=== PATIENT | female | born 1970 | race Caucasian/White ===

== ENCOUNTER → 2016-12-02 | Outpatient (CLI) | payer OTHER | LOC: FIMAGING 08:54 | DX: Z12.31 Encounter for screening mammogram for malignant neoplasm of breast (principal) | CPT/HCPCS: G0202 ==

== ENCOUNTER 2018-10-23 18:58 | Emergency (ER) | payer OTHER ==
--- NOTE | 2018-10-23 19:09 | EDPHY ---
HPI/HX/ROS/PE/MDM Narrative: CHIEF COMPLAINT: Abdominal pain, nausea HPI: This patient is a generally healthy 48 year old female. She arrives today with her complaining of severe abdominal pain. This woke her from sleep yesterday around 2:30am. This is a sharp, achy pain just above her umbilicus. It is associated with nausea. Her discomfort has waxed and waned throughout the day. She denies any changes in discomfort with food consumption. She has never had similar symptoms in the past. No changes with her stool. She endorses low- grade fever. She has taken ibuprofen and Tylenol. No recent international travel or unusual foods. No dysuria. No rash. No chest pain, shortness of breath , headache, or other associated symptoms. REVIEW OF SYSTEMS: A comprehensive 10 system review of systems is otherwise negative aside from elements mentioned in the history of present illness and medical decision making. PMH: Denies SOCIAL HISTORY: , at bedside. Employed. Nonsmoker. PHYSICAL EXAM: General:Patient is alert, in no acute distress. ENT:Eyes are normal to inspection. ENT inspection normal. Neck: Normal inspection. Full range of motion. Respiratory:No respiratory distress. Breath sounds normal bilaterally. Cardiovascular: Regular rate and rhythm. Strong peripheral pulses. Normal cap refill. Abdomen:The abdomen is nontender to palpation. There are no peritoneal signs. There are normal bowel sounds. Back: Normal to inspection. No tenderness to palpation. Skin: Normal color. No rash. Warm and dry. Extremities: Normal appearance. Full range of motion. Neuro: Oriented x3. Normal motor function. Normal sensory function. ED Course: 48 y/o female presents with abdominal pain and nausea ongoing since yesterday morning at 2:30am. Her abdomen is completely nontender on exam. Plan to administer 1L IV NS as well as 15mg IV Toradol for pain relief. I offered nausea medication but the patient declines at this time. Plan for labs including CBC, chemistries, liver, lipase. Plan for abdominal x-ray for further evaluation. X-ray of the abdomen shows moderate fecal material scattered throughout the colon, otherwise negative for acute processes. 20:18 Reviewed laboratory studies. Portions of the chemistries are still pending at this time, and the laboratory has been contacted regarding this. 20:30 Laboratory studies are completely unremarkable, WBC, LFTs, lipase within normal limits, no other acute abnormalities. 20:35 Reassessed patient. Discussed imaging and laboratory results. UA to be completed when patient can provide a urine sample. UA negative for UTI 21:00 Reassessed patient. Plan for CT abdomen/pelvis for further evaluation. 22:[address] Aly, radiologist. Large fibroid uterus may account for the patient's symptomatology. Reassessed patient. Discussed imaging results. Plan to discharge home in good condition with referral to [facility] for further evaluation. Follow up and return precautions discussed. She is comfortable with this plan. MDM: This patient presents with somewhat diffuse midline abdominal pain associated with nausea. We performed an extensive workup in emergency department including multiple labs as well as CT of the abdomen pelvis, all of which are negative for acute process. The patient has a significant amount of stool in her colon and extremely large fibroid uterus, which I suspect is likely related to the patient's symptoms. Patient has no pelvic pain. We discussed options and the patient is comfortable with the plan to follow up with a orthotic assistant as an outpatient. There is not appear to be any evidence of appendicitis, pyelonephritis, bowel obstruction or bowel perforation. We discussed strict return precautions. - Data Points Imaging Results: Imaging Impressions Abdomen X-Ray 10/23/18 19:22 Impression: Abdomen negative for acute localizing features. Abdomen CT 10/23/18 20:59 Impression: 1. Large fibroid uterus may account for the patient's symptomatology. As clinically directed, fibroid embolization could be considered for further treatment. 2. See above report for additional findings. Results called and discussed with Jose Rodriguez MD on 10/23/2018 at 22:00. Imaging: I viewed and interpreted images myself Laboratory Results: Laboratory Results 10/23/18 19:16 10/23/18 19:16 10/23/18 10/23/18 10/23/18 19:35 19:16 19:16 WBC 7.03 10^3/uL 10^3/uL (3.80-9.50) RBC 4.52 10^6/uL 10^6/uL (4.18-5.33) Hgb 14.2 g/dL g/dL (12.6-16.3) Hct 43.7 % % (38.0-47.0) MCV 96.7 fL fL (81.5-99.8) MCH 31.4 pg pg (27.9-34.1) MCHC 32.5 g/dL g/dL (32.4-36.7) RDW 13.4 % % (11.5-15.2) Plt Count 180 10^3/uL 10^3/uL (150-400) MPV 8.9 fL fL (8.7-11.7) Neut % (Auto) 80.0 % H % (39.3-74.2) Lymph % (Auto) 14.1 % L % (15.0-45.0) Starr % (Auto) 5.0 % % (4.5-13.0) Eos % (Auto) 0.1 % L % (0.6-7.6) Baso % (Auto) 0.4 % % (0.3-1.7) Nucleat RBC Rel Count 0.0 % % (0.0-0.2) Absolute Neuts (auto) 5.62 10^3/uL 10^3/uL (1.70-6.50) Absolute Lymphs (auto) 0.99 10^3/uL L 10^3/uL (1.00-3.00) Absolute Monos (auto) 0.35 10^3/uL 10^3/uL (0.30-0.80) Absolute Eos (auto) 0.01 10^3/uL L 10^3/uL (0.03-0.40) Absolute Basos (auto) 0.03 10^3/uL 10^3/uL (0.02-0.10) Absolute Nucleated RBC 0.00 10^3/uL 10^3/uL (0-0.01) Immature Gran % 0.4 % % (0.0-1.1) Immature Gran # 0.03 10^3/uL 10^3/uL (0.00-0.10) Sodium 134 mEq/L L mEq/L (135-145) Potassium 3.9 mEq/L mEq/L (3.5-5.2) Chloride 101 mEq/L mEq/L (97-110) Carbon Dioxide 25 mEq/l mEq/l (22-31) Anion Gap 8 mEq/L mEq/L (6-14) BUN 13 mg/dL mg/dL (7-23) Creatinine 0.7 mg/dL mg/dL (0.6-1.0) Estimated GFR > 60 Glucose 104 mg/dL H mg/dL (70-100) Calcium 9.4 mg/dL mg/dL (8.5-10.4) Total Bilirubin 0.7 mg/dL mg/dL (0.1-1.4) Conjugated Bilirubin 0.2 mg/dL mg/dL (0.0-0.5) Unconjugated Bilirubin 0.5 mg/dL mg/dL (0.0-1.1) AST 25 IU/L IU/L (14-46) ALT 27 IU/L IU/L (9-52) Alkaline Phosphatase 61 IU/L IU/L (38-126) Total Protein 7.5 g/dL g/dL (6.3-8.2) Albumin 4.5 g/dL g/dL (3.5-5.0) Lipase 78 IU/L IU/L (23-300) Urine Color YELLOW Urine Appearance CLEAR Urine pH 5.0 (5.0-7.5) Ur Specific [place] 1.034 H (1.002-1.030) Urine Protein 1+ H (NEGATIVE) Urine Ketones 2+ H (NEGATIVE) Urine Blood 1+ H (NEGATIVE) Urine Nitrate NEGATIVE (NEGATIVE) Urine Bilirubin NEGATIVE (NEGATIVE) Urine Urobilinogen 2.0 EU H EU (0.2-1.0) Ur Leukocyte Esterase NEGATIVE (NEGATIVE) Urine RBC 1-3 /hpf /hpf (0-3) Urine WBC 1-3 /hpf /hpf (0-3) Ur Epithelial Cells TRACE /lpf /lpf (NONE-1+) Urine Mucus TRACE /lpf /lpf (NONE-1+) Urine Glucose NEGATIVE (NEGATIVE) Medications Given: Discontinued Medications Sodium Chloride (Ns) 1,000 mls @ 0 mls/hr IV EDNOW ONE; Wide Open PRN Reason: Protocol Stop: 10/23/18 19:23 Last Admin: 10/23/18 19:32 Dose: 1,000 mls Ketorolac Tromethamine (Toradol) 15 mg IVP EDNOW ONE Stop: 10/23/18 19:23 Last Admin: 10/23/18 19:32 Dose: 15 mg General Time Seen by Provider: 10/23/18 19:05 Initial Vital Signs: Initial Vital Signs Temperature (C) 36.7 C 10/23/18 19:02 Heart Rate 56 L 10/23/18 19:02 Respiratory Rate 18 10/23/18 19:02 Blood Pressure 109/61 10/23/18 19:02 O2 Sat (%) 99 10/23/18 19:02 O2 Delivery Mode Room Air Allergies/Adverse Reactions: No Known Allergies Allergy (Unverified 10/23/18 19:02) Home Medications: Medication Instructions Recorded NK [No Known Home Meds] 10/23/18 Departure - Departure Disposition: Home, Routine, Self-Care Clinical Impression: Fibroid uterus, Abdominal pain Condition: Good Instructions: Oxycodone/Acetaminophen (By mouth), Acute Abdominal Pain (ED) Additional Instructions: Be sure to stay well hydrated. Follow up with [facility] for further evaluation within one week. Follow up with your primary care provider in 2-3 days. Return to the Emergency Department for worsening pain, fever, severe vomiting, change in character or severity of pain or other worsening of condition. Referrals: Margot Hay MD [Primary Care Provider] - As per Instructions Carlos Chatman MD [Medical Doctor] - As per Instructions Report Scribed for: Jose Rodriguez Report Scribed by: Chasidy Bell Date of Report: 10/23/18 Time of Report: 19:09 Physician Review and Approval Statement: Portions of this note were transcribed by an ED scribe. I personally performed the history, physical exam, and medical decision making; and confirm the accuracy of the information in the transcribed note.
[2018-10-23] MEDS ORDERED: NS 1,000 ML IV ONE (19:22)
[2018-10-23] MEDS ORDERED: KETOROLAC 30 MG/1 ML SDV IVP ONE (19:22)
[2018-10-23 19:42] LABS: PLATELET COUNT 180 10^3/uL (150-400)
[2018-10-23] MEDS ORDERED: IOPAMIDOL (ISOVUE-300) 100 ML BTL ONE (21:02)
[2018-10-23] MEDS ORDERED: OXYCODONE/APAP 5/325MG PREPACK#4 BTL TAKEHOME ONE (22:11)
[2018-10-23 22:38] VITALS: BP 94/57
== END 2018-10-23 22:37 | disposition home or self-care (01) ==
DX: R10.33 Periumbilical pain (principal); D25.9 Leiomyoma of uterus, unspecified; E86.9 Volume depletion, unspecified
CPT/HCPCS: 96374; J1885; Q9967